=== PATIENT | male | born 1985 | race Caucasian/White ===

== ENCOUNTER 2018-09-08 13:36 | Emergency (ER) | payer MEDICAID, OTHER ==
[2018-09-08 15:17] VITALS: BP 150/81; PULSE 114; RESP 20; TEMP 97.9; O2SAT 99
== END 2018-09-08 16:10 | disposition home or self-care (01) | DRG 563 ==
LOC: ED 13:36
DX: S93.401A Sprain of unspecified ligament of right ankle, initial encounter (principal); W10.9XXA Fall (on) (from) unspecified stairs and steps, initial encounter
CPT/HCPCS: 73610; 99282; 99283